=== PATIENT | male | born 1945 | race Caucasian/White ===

== ENCOUNTER 2019-08-01 11:30 | Outpatient (RCR) | payer MEDICARE, SELFPAY ==
[2019-07-25 08:38] VITALS: BP 172/79; PULSE 67; RESP 18; TEMP 36.8; BMI 22.9
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
[2019-08-01 11:36] VITALS: BP 167/87; PULSE 68; RESP 16; TEMP 36.2; BMI 22.9
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
== END 2019-08-04 23:59 ==
LOC: WC 11:30
PROVIDERS: PCP Family Medicine; Referring Provider Nurse Practitioner; Visit Provider Nurse Practitioner
DX: S80.821A Blister (nonthermal), right lower leg, initial encounter (principal); W22.8XXA Striking against or struck by other objects, initial encounter; N40.0 Benign prostatic hyperplasia without lower urinary tract symptoms; E11.22 Type 2 diabetes mellitus with diabetic chronic kidney disease; N18.3 Chronic kidney disease, stage 3 (moderate); I12.9 Hypertensive chronic kidney disease with stage 1 through stage 4 chronic kidney disease, or unspecified chronic kidney disease; Z86.718 Personal history of other venous thrombosis and embolism; Z86.711 Personal history of pulmonary embolism; Z94.0 Kidney transplant status; Z79.01 Long term (current) use of anticoagulants; Z79.899 Other long term (current) drug therapy; R60.0 Localized edema; L03.115 Cellulitis of right lower limb
CPT/HCPCS: 11042; 87070; 87075; 87077; 87186; 87205; 99213; G0463

== ENCOUNTER 2019-08-31 13:30 | Outpatient (RCR) | payer MEDICARE, SELFPAY ==
[2019-08-05 01:09] VITALS: BP 167/87; PULSE 68; RESP 16; TEMP 36.2
[2019-08-08 09:47] VITALS: BP 188/77; PULSE 74; RESP 16; TEMP 36.1; BMI 22.9
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
[2019-08-15 08:30] VITALS: BP 157/84; PULSE 16; RESP 16; TEMP 36.7; BMI 22.9
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
[2019-08-22 08:59] VITALS: BP 160/77; PULSE 60; RESP 16; TEMP 36.4; BMI 22.9
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
[2019-08-29 09:08] VITALS: BP 168/77; PULSE 61; RESP 18; TEMP 36.4; BMI 22.9
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
[2019-08-31 13:24] VITALS: BP 168/82; PULSE 74; RESP 16; TEMP 36.1; BMI 22.9
== END 2019-09-04 23:59 ==
LOC: WC 13:30
PROVIDERS: PCP Family Medicine; Referring Provider Nurse Practitioner; Visit Provider Nurse Practitioner
DX: S80.821A Blister (nonthermal), right lower leg, initial encounter (principal); W22.8XXA Striking against or struck by other objects, initial encounter; Z94.0 Kidney transplant status; R60.0 Localized edema; Z86.14 Personal history of Methicillin resistant Staphylococcus aureus infection; E11.22 Type 2 diabetes mellitus with diabetic chronic kidney disease; N18.3 Chronic kidney disease, stage 3 (moderate); Z86.718 Personal history of other venous thrombosis and embolism; Z86.711 Personal history of pulmonary embolism; Z79.01 Long term (current) use of anticoagulants
CPT/HCPCS: 11042; 87070; 87075; 87205; 97607

== ENCOUNTER 2019-09-26 08:30 | Outpatient (RCR) | payer MEDICARE, SELFPAY ==
[2019-09-05 00:51] VITALS: BP 168/82; PULSE 74; RESP 16; TEMP 36.1
[2019-09-05 08:57] VITALS: BP 145/69; PULSE 62; RESP 18; TEMP 36.7; BMI 22.9
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
[2019-09-12 08:57] VITALS: BP 158/78; PULSE 69; RESP 18; TEMP 36.4; BMI 22.9
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
[2019-09-26 08:36] VITALS: BP 161/60; PULSE 81; RESP 18; TEMP 36.6; BMI 22.9
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
== END 2019-10-04 23:59 ==
LOC: WC 08:30
PROVIDERS: PCP Family Medicine; Referring Provider Nurse Practitioner; Visit Provider Nurse Practitioner
DX: S81.801A Unspecified open wound, right lower leg, initial encounter (principal); S80.821S Blister (nonthermal), right lower leg, sequela; W22.8XXS Striking against or struck by other objects, sequela; L08.9 Local infection of the skin and subcutaneous tissue, unspecified; R60.0 Localized edema; E11.9 Type 2 diabetes mellitus without complications; Z79.01 Long term (current) use of anticoagulants; Z79.84 Long term (current) use of oral hypoglycemic drugs; Z79.52 Long term (current) use of systemic steroids; Z79.899 Other long term (current) drug therapy
CPT/HCPCS: 11042; 97607; 99213; G0463

== ENCOUNTER → 2023-06-21 | Outpatient (CLI) | payer MEDICARE, SELFPAY ==
--- NOTE | 2023-06-21 12:23 | MRI_ITS ---
STUDY: MRI CERVICAL SPINE WITHOUT CONTRAST REASON FOR EXAM: Male, 77 years old. difficulty walking, back pain [id number], no injury or trauma TECHNIQUE: Standardized fat and water weighted pulse sequences were obtained in the sagittal and axial planes. COMPARISON: X-ray of the cervical spine dated June 17, 2023 FINDINGS: Normal foramen magnum and brainstem-cervical cord junction. Normal craniovertebral junction. Normal anterior atlantoaxial articulation. Normal odontoid process. There is straightening of the normal cervical lordosis. C2-3: Normal endplates. Diffuse disc desiccation and mild disc space narrowing with broad-based disc herniation eccentric to the right. Normal central canal and intervertebral neural foramina. C3-4: Normal endplates. Diffuse disc desiccation with moderate to significant disc space narrowing and a diffuse disc bulge contributing to mild central canal stenosis and mass effect on the anterior aspect of the cord. Moderate to severe right foraminal stenosis with nerve root compression due to combined uncovertebral facet joint hypertrophy. Moderate left foraminal stenosis. C4-5: Moderate to severe disc space narrowing with a diffuse disc bulge causing compression across the anterior aspect of the cord and mild to moderate central canal and moderate right and severe left foraminal stenosis with nerve root compression due to uncovertebral hypertrophy. C5-6: Moderate to severe disc space narrowing with a diffuse disc bulge/spur complex causing mild central canal stenosis and compression anterior aspect of the cord. Severe bilateral foraminal stenosis with nerve root compression due to uncovertebral hypertrophy. C6-7: Severe disc space narrowing with a diffuse disc bulge/spur complex causing compression anterior aspect of the cord and mild central canal stenosis moderate left and severe right foraminal stenosis with nerve root compression due to uncovertebral and facet joint hypertrophy. C7-T1: Normal endplates. Normal disc height, signal and morphology. Normal central canal and intervertebral neural foramina. Normal cervical cord. There is no demonstrated cervical cord syrinx cavity. Normal visualized soft tissue structures. MRI/Spine Cervical (Routine) IMPRESSION: 1. Multilevel degenerative changes, as described above. 2. Mild to moderate central canal stenosis with compression on the anterior aspect of the cord from diffuse disc bulges from C3-C4 down to C6-C7 3. Multilevel moderate to severe foraminal stenosis with nerve root compression Electronically Signed: Gordon Blanc MD at 15:31 EST ,
== END | disposition home or self-care (01) ==
LOC: MRI 12:17
PROVIDERS: PCP Family Medicine; Referring Provider Orthopaedic Surgery; Visit Provider Orthopaedic Surgery
DX: M50.30 Other cervical disc degeneration, unspecified cervical region (principal)
CPT/HCPCS: 72141

== ENCOUNTER → 2024-04-23 | Outpatient (CLI) | payer MEDICARE, SELFPAY ==
--- NOTE | 2024-04-23 13:02 | CT_ITS ---
STUDY: CT CHEST T ABDOMEN WITHOUT CONTRAST REASON FOR EXAM: Male, 78 years old. RIGHT KIDNEY MASS AND LEFT UPPER LOBE NODULE RADIATION DOSAGE (If Supplied By Facility): CTDIvol = ( 10.78 ) mGy, DLP = ( 835.56 ) mGycm TECHNIQUE: Transaxial imaging was performed without the administration of intravenous contrast material. Multiplanar coronal and sagittal images were reformatted. Individualized dose optimization techniques were used for this CT. COMPARISON: No relevant priors. FINDINGS: CHEST There is a 7.2 mm x 11.2 mm nodule in the medial left lung apex. This may represent scarring. Mild degree of scarring in the right lung apex as well. Focal area of groundglass appearance in the anterior right upper lobe. Minimal scarring at the right lung base as well as linear calcification within the peripheral aspect of the left major fissure. There is no demonstrated pleural abnormality. Sternal cerclage wires and vascular clips are present from a prior sternotomy and coronary artery bypass graft procedure (CABG). There are calcifications of the coronary arteries. Normal mediastinum. Normal hilar regions. Normal unenhanced pulmonary arteries. There is atherosclerotic calcification of the aortic arch. There are multi-level degenerative changes of the thoracic spine. Small hiatal hernia. ABDOMEN Normal liver. Normal gallbladder and extrahepatic biliary system. Normal spleen. Normal pancreas. Normal bilateral adrenal glands. There is a marked degree of a atrophy of the tejon kidneys. A transplant kidney is seen in the right side of the pelvis. There is evidence of a hydronephrosis of the right transplanted kidney. Normal visualized stomach. Normal small intestine. Normal colon. The appendix is visualized and appears normal. There is diffuse atherosclerotic calcification of the abdominal aorta and its major visceral branches, without a demonstrated aneurysm. Normal inferior vena cava. Normal retroperitoneum. Distended urinary bladder. Normal abdominal wall. There are degenerative changes of the visualized lumbar spine. CT/CT Chest AND Abd W/O Contrast IMPRESSION: 7.2 mm x 11.2 mm nodule in the medial left lung apex as described. This may represent a focal area of scarring. Mild scarring at the right lung base as well as focal groundglass appearance in the right upper lobe. Calcification of the left major fissure. Marked degree of atrophy of the tejon kidneys. A transplanted right kidney is seen in the pelvis. There is evidence of hydronephrosis. Distended urinary bladder. Electronically Signed: Mac Golden MD at 15:25 EST ,
== END | disposition home or self-care (01) ==
LOC: CT 13:00
PROVIDERS: PCP Family Medicine; Referring Provider Internal Medicine Hematology & Oncology; Visit Provider Internal Medicine Hematology & Oncology
DX: N28.89 Other specified disorders of kidney and ureter (principal); R91.1 Solitary pulmonary nodule
CPT/HCPCS: 71250; 74150

== ENCOUNTER → 2024-08-16 | Outpatient (CLI) | payer MEDICARE, SELFPAY ==
--- NOTE | 2024-08-16 12:54 | CT_ITS ---
PROCEDURE: CT CHEST, ABD, PELVIS WO CONT REASON FOR EXAM: F/U KIDNEY MASS LUNG NODULE TECHNIQUE: Chest, abdomen and pelvis CT without intravenous contrast. No oral contrast. COMPARISON: Comparison is made with prior study dated April 23, 2024. FINDINGS: CT CHEST: Hardware: None. Lymph nodes: No mediastinal hilar or axillary lymphadenopathy. Heart and Vasculature: Normal heart size. No pericardial effusion. Atherosclerotic calcifications of the thoracic aorta. Thoracic aorta and pulmonary arteries have normal contours; noncontrast technique limits evaluation.. Prior CABG. Coronary Artery Calcifications: Present Lungs and Airways: Stable spiculated 1 cm nodule in the medial aspect of the left lung apex. Stable scarring in the right lung apex. Stable scarring in the left major fissure with focal calcification. No new abnormality is seen. Pleura: No pleural effusion. No pneumothorax. Bones: Degenerative changes of the thoracic spine. CT ABDOMEN / PELVIS: Noncontrast technique limits evaluation of the abdominal and pelvic viscera. Liver: Unremarkable. Gallbladder: Unremarkable. Spleen: Stable 1.3 cm and 7 mm well-defined hypodensities in the superior aspect of the spleen. Pancreas: Unremarkable. Adrenals: Unremarkable. Kidneys: Marked atrophy of the left kidney with fatty replacement. Calcification in the renal pelvis. Marked atrophy of the right kidney. There is a 1 point 8 cm nodular density in the upper pole of the right kidney. This is unchanged. A transplant kidney seen in the right hemipelvis. Stable mild to moderate degree of hydronephrosis. Bladder: Marked degree of urinary bladder distention. Prostatic enlargement with central calcification. There is indentation at the bladder base. Bowel: Unremarkable. Appendix: Normal. Lymph nodes: No suspicious lymph node enlargement. Vasculature: Major vascular structures are unremarkable. Peritoneum / Retroperitoneum: No ascites. No free air. Bones: Degenerative changes of the spine. CT/CT Chest, Abd, Pelvis WO Cont IMPRESSION: Stable examination. One or more dose reduction techniques were used (e.g., Automated exposure contr ol, adjustment of the mA and/or kV according to patient size, use of iterative reconstruction technique). Reading Location: [place] [id number]
== END | disposition home or self-care (01) ==
LOC: CT 12:53
PROVIDERS: PCP Family Medicine; Referring Provider Internal Medicine Hematology & Oncology; Visit Provider Internal Medicine Hematology & Oncology
DX: N28.89 Other specified disorders of kidney and ureter (principal); R91.1 Solitary pulmonary nodule
CPT/HCPCS: 71250; 74176

== ENCOUNTER → 2024-11-15 | Outpatient (CLI) | payer MEDICARE, SELFPAY ==
--- NOTE | 2024-11-15 14:55 | CT_ITS ---
PROCEDURE: CT CHEST, ABD, PELVIS WO CONT 11/15/2024 REASON FOR EXAM: RIGHT RENAL MASS; LUNG NODULE TECHNIQUE: Chest, abdomen and pelvis CT without intravenous contrast. Coronal and Sagittal reconstruction series were provided. One or more dose reduction techniques were used (e.g., Automated exposure control, adjustment of the mA and/or kV according to patient size, use of iterative reconstruction technique. RADIATION DOSE SUMMARY: CTDlvol: 8 mGy DLP: 702.61 mGycm COMPARISON: Prior study dated August 17, 2024. FINDINGS: CT CHEST: Hardware: None Lymph nodes: No suspicious lymph nodes are seen Heart and Vasculature: The heart is nonenlarged. Coronary Artery Calcifications: Present Lungs and Airways: Stable 1 cm spiculated nodule in the medial aspect of the left lung apex. Stable scarring in the right lung apex as well as in the left major fissure with focal calcifications. Stable scarring in the lower lobes. Pleura: No pleural effusion. Bones: Degenerative changes of the thoracic spine. CT ABDOMEN / PELVIS: Noncontrast technique limits evaluation of the abdominal and pelvic viscera. Liver: Unremarkable Gallbladder: Unremarkable Spleen: Stable 7 mm in 12 mm well-defined hypodensity in the superior peripheral aspect of the spleen. Pancreas: Diffuse fatty atrophy. Adrenals: Unremarkable Kidneys: Marked degree of atrophy of the left kidney with fatty replacement. Calcification in the renal pelvis. Marked atrophy of the right kidney. There is a 2.2 cm x 1.9 cm solid mass in the upper pole of the right kidney. This has increased slightly in size as compared to prior study. A transplant it right kidney is seen in the right hemipelvis. There is a marked degree of hydronephrosis. Bladder: Marked degree of bladder distention. Heterogeneous enlargement and lobulation of the prostate measuring 4.6 cm by 6.7 cm. Bowel: Colonic diverticulosis without diverticulitis. Appendix: Unremarkable Lymph nodes: No retroperitoneal lymph nodes. Vasculature: Mild diffuse atherosclerotic calcifications are noted. Peritoneum / Retroperitoneum: Unremarkable Bones: Degenerative changes of the spine. CT/CT Chest, Abd, Pelvis WO Cont IMPRESSION: Essentially stable examination except for slight enlargement of the right renal mass. Reading Location: [id number]
== END | disposition home or self-care (01) ==
LOC: CT 14:53
PROVIDERS: PCP Family Medicine; Referring Provider Nurse Practitioner Family; Visit Provider Nurse Practitioner Family
DX: N28.89 Other specified disorders of kidney and ureter (principal); R91.1 Solitary pulmonary nodule
CPT/HCPCS: 71250; 74176

== ENCOUNTER → 2025-05-16 | Outpatient (CLI) | payer MEDICARE, SELFPAY ==
--- NOTE | 2025-05-16 14:10 | CT_ITS ---
PROCEDURE: CT CHEST, ABD, PELVIS WO CONT 05/16/2025 REASON FOR EXAM: F/U R KIDNEY MASS/SHERLEY NODULE Lung nodules and renal mass. TECHNIQUE: Chest, abdomen and pelvis CT without intravenous contrast. Coronal and Sagittal reconstruction series were provided. One or more dose reduction techniques were used (e.g., Automated exposure control, adjustment of the mA and/or kV according to patient size, use of iterative reconstruction technique. RADIATION DOSE SUMMARY: CTDlvol: 16 mGy DLP: 686 mGycm COMPARISON: November 2024. and extending back to April 2024. FINDINGS: CHEST Thyroid gland: Negative. Lungs: Irregular left apical lung nodule unchanged since at least April 2024. Ingalls shaped partly calcified lesion changes of the major fissure on the left also unchanged. Small area of scarring in the right middle lobe. Emphysematous changes. Mild reticulonodular densities subpleural nodules noted. No new pulmonary nodules or masses. Pleura: Negative for pleural effusion or pneumothorax. Airways: Imaged bronchi and trachea negative. Mediastinum: Negative for mediastinal mass. Lymph nodes: Negative for axillary, mediastinal or hilar adenopathy. Heart and Vasculature: Ascending thoracic aorta 3.6 cm. Heart normal size. Mild vascular calcifications of the thoracic aorta. Coronary Artery Calcifications: Severe vascular calcifications of the coronary arteries Hardware: Sternotomy wires in place. None. Bones and Soft Tissues: Age-appropriate degenerative changes of the thoracic spine. ABDOMEN Liver: Negative. Biliary system: Negative. Negative for intrahepatic or extrahepatic ductal dilatation. Gallbladder: Contracted. Negative for cholecystitis. Spleen: Negative. Pancreas: Negative. Adrenals: Negative. Kidneys: Marked bilateral renal atrophy. Soft tissue lesion in the right lower kidney measures 2.2 cm, stable. Left renal pelvis cyst nodularity unchanged. Right renal transplant kidney with hydronephrosis. Bowel: Mild increased stool throughout the colon. Negative for small or large- bowel obstruction. Appendix: The appendix is not identified. There is no inflammatory process identified in the right lower quadrant to suggest appendicitis. Vasculature: Moderate atherosclerotic vascular calcifications of the abdominal aorta and its branches. Peritoneum / Retroperitoneum: Negative. PELVIS Lymph nodes: Negative for inguinal or iliac adenopathy. Bladder: Urinary bladder negative Reproductive Organs: Prostate negative. Bones and Soft Tissues: Degenerative changes mid and lower lumbar spine. Left hip arthroplasty. No lytic or sclerotic lesions. Age appropriate degenerative changes of the lumbar spine hips and pelvis. CT/CT Chest, Abd, Pelvis WO Cont IMPRESSION: Stable left apical pleural nodule. Stable soft tissue lesion in the right major fissure. Emphysematous changes. No new pulmonary nodules or masses Stable right kidney lesion. Stable kidney transplant. Reading Location: [id number]
== END | disposition home or self-care (01) ==
LOC: CT 13:51
PROVIDERS: PCP Family Medicine; Referring Provider Internal Medicine Hematology & Oncology; Visit Provider Internal Medicine Hematology & Oncology
DX: R91.1 Solitary pulmonary nodule (principal); N28.89 Other specified disorders of kidney and ureter
CPT/HCPCS: 71250; 74176